=== PATIENT | male | born 1965 ===

== ENCOUNTER 2017-07-09 12:13 | Emergency (ER) | payer OTHER ==
[2017-07-09 12:58] VITALS: BP 144/64
--- NOTE | 2017-07-09 14:02 | RAD ---
INDICATION: Cough, fever, shortness of breath. History of tobacco use. COMPARISON: No relevant prior exams available on the [facility] [place] [facility] for comparison. TECHNIQUE: Dual energy PA and routine lateral views of the chest were obtained. REPORT: Elevated lung volumes and mild prominence of the interstitial markings. No compelling alveolar consolidation, focal pulmonary lesion, pleural effusion, pneumothorax. The heart, pulmonary vasculature, and mediastinal contours are unremarkable. Unremarkable soft tissue contours and osseous structures for age. IMPRESSION: Stigmata of probable chronic obstructive pulmonary disease. No evidence for pneumonia.
--- NOTE | 2017-07-09 14:06 | UC ---
UC General HPI - HPI Summary HPI Summary: C/o cough, subj fever, sore throat last 2 days. No GI sx. + sinus congestion. No rash. - History of Current Complaint Chief Complaint: UCRespiratory Stated Complaint: CHEST CONGESTION Time Seen by Provider: 07/09/17 13:21 Hx Obtained From: Patient Pain Intensity: 0 - Allergy/Home Medications Allergies/Adverse Reactions: Allergies Allergy/AdvReac Type Severity Reaction Status Date / Time No Known Allergies Allergy Verified 07/09/17 12:58 PMH/Surg Hx/FS Hx/Imm Hx Previously Healthy: Yes - Surgical History Surgical History: None - Family History Known Family History: Positive: Other - no ent related history. - Social History Alcohol Use: Weekly Substance Use Type: None Smoking Status (MU): Heavy Every Day Tobacco Smoker Length of Time of Smoking/Using Tobacco: 1 ppd Review of Systems Constitutional: Fever, Fatigue Skin: Negative Eyes: Negative ENT: Sore Throat, Nasal Discharge, Sinus Congestion Respiratory: Cough Cardiovascular: Negative Gastrointestinal: Negative Genitourinary: Negative Motor: Negative Neurovascular: Negative Musculoskeletal: Arthralgia, Myalgia Neurological: Headache Psychological: Negative Is Patient Immunocompromised?: No All Other Systems Reviewed And Are Negative: Yes Physical Exam Triage Information Reviewed: Yes Appearance: Well-Nourished Vital Signs: Initial Vital Signs Temp 100.4 F 07/09/17 12:53 Pulse 71 07/09/17 12:53 Resp 24 07/09/17 12:53 BP 144/64 07/09/17 12:53 Pulse Ox 96 07/09/17 12:53 Vital Signs Reviewed: Yes Eye Exam: Normal - grossly normal ENT: Positive: Pharyngeal erythema - mild redness post pharynx, Nasal congestion , TM dull Neck exam: Normal Neck: Positive: Supple, Nontender Respiratory: Positive: No respiratory distress, No accessory muscle use, Wheezing - occas exp wheez scattered Cardiovascular Exam: Normal Cardiovascular: Positive: RRR, No Murmur, Pulses Normal, Brisk Capillary Refill Abdominal Exam: Normal Abdomen Description: Positive: Nontender Musculoskeletal Exam: Normal - gait steady, moves x 4 ext's Neurological Exam: Normal - grossly nonfocal Psychological Exam: Normal - conversing easily and appropriately Skin Exam: Normal - no visit or reported rash. Non-diaphoretic. Course/Dx - Course Course Of Treatment: Influenza B +. CXR - noted and reviewed (stigmata of probable copd). Recommend smoking cessation. Reviewed results / coa / tx plan with pt. Questions as posed answered to the best of my ability. - Differential Dx - Multi-Symptom Provider Diagnoses: Influenza B. COPD Discharge - Discharge Plan Condition: Stable Disposition: HOME Prescriptions: Albuterol HFA INHALER* [Ventolin HFA Inhaler*] 2 puff INH Q4H PRN #1 mdi PRN Reason: Wheezing Oseltamivir CAP* [Tamiflu CAP*] 75 mg PO BID #10 cap Patient Education Materials: COPD (Chronic Obstructive Pulmonary Disease) (ED) , How to Stop Smoking (ED), Influenza (ED) Forms: *Work Release Referrals: No Primary Care Phys,NOPCP [Primary Care Provider] - [facility] [Outside] Additional Instructions: Please follow up with a primary care physician as soon as you are able, ideally in the next couple weeks. Please seek medical attention for worse or new problems in the meantime.
[2017-07-09] MEDS: Albuterol HFA INHALER* 8 gm MDI INH ONE (14:32)
== END 2017-07-09 14:43 | disposition home or self-care (01) ==
LOC: UCCORT 12:13
DX: J10.1 Influenza due to other identified influenza virus with other respiratory manifestations (principal); J44.9 Chronic obstructive pulmonary disease, unspecified; F17.210 Nicotine dependence, cigarettes, uncomplicated
CPT/HCPCS: 71046; 87502; 99212; A9270-GY; G0463